=== PATIENT | male | born 1940 | race Caucasian/White ===

== ENCOUNTER 2020-08-03 06:00 | Day surgery (SDC) | payer MEDICARE ==
[2020-08-02 08:57] VITALS: BMI 30.9
[2020-08-03] MEDS ORDERED: Levofloxacin 500 mg/D5W 100 ml Premix Bag ONE (06:46)
[2020-08-03] MEDS ORDERED: Iothalamate Meglumine 60% 50 ML VIAL FS ONE (07:07)
[2020-08-03] MEDS ORDERED: Fentanyl 100 MCG/2 ML VIAL ONE (07:11)
[2020-08-03] MEDS ORDERED: SUGAMMADEX SODIUM 200 MG/2 ML VIAL ONE ×2 (07:59→08:27)
[2020-08-03] MEDS ORDERED: PHENYLEPHRINE-NS 100 MCG/ML 10 ML SYRINGE ONE (09:03)
[2020-08-03] MEDS ORDERED: Dexamethasone 20 MG/5 ML VIAL ONE (09:03)
[2020-08-03] MEDS ORDERED: Lidocaine 1% PF 5 ML VIAL ONE (09:03)
[2020-08-03] MEDS ORDERED: Glycopyrrolate 0.2 MG/ML 5 ML SYRINGE ONE (09:03)
[2020-08-03] MEDS ORDERED: Ondansetron PF 4 MG/2 ML Vial ONE (09:03)
[2020-08-03] MEDS ORDERED: PROPOFOL 200 MG/20 ML VIAL ONE (09:03)
[2020-08-03] MEDS ORDERED: Rocuronium Bromide 10 MG/ML (10ML VIAL) ONE (09:03)
[2020-08-03] MEDS ORDERED: Oxybutynin 5 MG TAB ONE (09:48)
[2020-08-03] MEDS ORDERED: Phenazopyridine HCl 97.5 MG TABLET ONE (09:48)
[2020-08-03] MEDS ORDERED: Ketorolac Tromethamine 30 MG/ML VIAL ONE (09:48)
--- NOTE | 2020-08-04 10:22 | EKG ---
Test Reason : PREOP Blood Pressure : / mmHG Vent. Rate : 070 BPM Atrial Rate : 070 BPM P-R Int : 200 ms QRS Dur : 102 ms QT Int : 420 ms P-R-T Axes : 061 -25 049 degrees QTc Int : 453 ms Normal sinus rhythm Normal ECG No previous ECGs available Confirmed by FRANDY SAVAGE M.D. ([id number]) on 08/04/2020 10:21:37 AM Referred By: DALILA Confirmed By:FRANDY SAVAGE M.D.
--- NOTE | 2020-08-04 11:40 | OP ---
DATE OF PROCEDURE: 08/03/2020 PREOPERATIVE DIAGNOSIS: Large right bladder tumor. POSTOPERATIVE DIAGNOSIS: Large right bladder tumor. PROCEDURES PERFORMED: Transurethral resection of large bladder tumor, retrograde pyelograms, instillation of mitomycin-C. ANESTHESIA: General. COMPLICATIONS: None. BLOOD LOSS: Minimal. SPECIMENS: Right bladder tumor, right wall biopsy, deep muscle biopsy. DESCRIPTION OF OPERATION: After informed consent, the patient was taken to the operating room, transferred to the table under his own power. Anesthesia was established. A time-out was performed showing the correct patient, site, and procedure. Preoperative antibiotics were administered. He was prepped and draped in the lithotomy position. The rigid resectoscope was advanced through the urethra noting normal course and caliber of the urethra into the prostate noting coapting lateral lobes, right greater than left with no significant bladder neck obstruction. The bladder was then entered and systematically examined noting a few small diverticula along the posterior wall. He also has a large tumor emanating from the right wall. There is some increased vascularity extending from the tumor slightly toward the bladder neck on the right wall. The trigone was uninvolved and both ureters were normal in appearance. I inserted the laser bridge and used a Pollack catheter to perform right and left retrograde pyelograms, which showed good filling of both ureters and renal pelves with no filling defects or evidence of obstruction. I then switched to the resection loop, and removed the bladder tumor from the right wall, which was passed off as specimen. I then resected the base ensuring adequate muscle for determination of muscle invasion. Finally I took a biopsy of the area of increased vascularity toward the bladder neck. Meticulous hemostasis was achieved. The bladder was drained and re-examined noting no active bleeding. The scope was withdrawn, and an 18-[place] Cordero catheter placed with 10 mL instilled in the balloon. Mitomycin 40 mg in 20 mL was instilled through the catheter into the bladder and the catheter plugged. The patient was then awoken from anesthesia, transferred back to his hospital bed, and taken to PACU in stable condition, where he will discharge home upon recovery. Job ID: [id number]
== END 2020-08-03 12:10 | disposition home or self-care (01) ==
LOC: SDC 06:00
PROVIDERS: ATTEND Urology
PROC: 0T5B8ZZ Destruction of Bladder, Via Natural or Artificial Opening Endoscopic (ICD-10-PCS; principal; 2020-08-03)
DX: C67.2 Malignant neoplasm of lateral wall of bladder (principal); N30.20 Other chronic cystitis without hematuria; N32.3 Diverticulum of bladder; I10 Essential (primary) hypertension; N52.9 Male erectile dysfunction, unspecified; K21.9 Gastro-esophageal reflux disease without esophagitis; E78.5 Hyperlipidemia, unspecified; Z87.891 Personal history of nicotine dependence; Z79.899 Other long term (current) drug therapy
CPT/HCPCS: 52240; 76000; 93005; J9280; 88305; 88307; 93010; J1100; J1885; J1956; J2405; J2704; J3010

== ENCOUNTER 2020-12-22 11:03 | Outpatient (CLI) | payer MEDICARE ==
--- NOTE | 2020-12-22 11:20 | RAD ---
Right knee 4 views HISTORY: Right knee pain and swelling. FINDINGS: Mild joint space narrowing medial compartment. Mild tricompartmental osteophytosis. No acute fracture or dislocation. Small amount of fluid distends the suprapatellar bursa on the later al view. Calcification within the arterial structures. 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 Atherosclerosis.
== END 2020-12-22 11:04 | disposition home or self-care (01) ==
LOC: SCSRAD 11:03
PROVIDERS: ATTEND Family Medicine
DX: M25.561 Pain in right knee (principal); M17.12 Unilateral primary osteoarthritis, left knee; M25.461 Effusion, right knee

== ENCOUNTER 2024-10-30 13:57 | Inpatient (IN) | payer MEDICARE ==
[~2024-10-30 13:57] MED LIST: Iopamidol-370 76% 500 ML MDV (1 ML CHARGE) ONE
[2024-10-30 15:30] LABS: #Basophils 0.03 10x3/uL (0.0-0.2); %Basophils 0.4 % (0.0-1.0); %Eosinophils 0.4 % (0.0-10.0); %Monocytes 11.6 % (0.0-10.0); %Neutrophils 70.3 % (42.0-75.0); Hematocrit 38.5 % (42.0-52.0); Hemoglobin 13.7 g/dL (14.0-18.0); Mean Corpuscular HGB CONC 35.6 g/dL (32.0-36.0); Mean Corpuscular Hemoglobin 33.7 pg (27.0-31.0); Mean Corpuscular Volume 94.6 fL (78.0-98.0); Mean Platelet Volume 9.8 fL (7.4-10.4); Platelet Count 205 10x3/uL (130-400); RBC Distribution Width 12.4 % (11.5-14.5); Red Blood Cell (RBC) Count 4.07 mill/uL (4.70-6.10)
[2024-10-30 15:51] LABS: Anion Gap 16 mmol/L (10-20); BUN (Urea Nitrogen) 13 mg/dL (8.4-25.7); Calc. Creatinine Clearance 0 mL/min (70-130); Calcium 9.7 mg/dL (7.8-10.44); Carbon Dioxide 23 mmol/L (23-31); Chloride 94 mmol/L (98-107); Estimated GFR 92; Glucose 115 mg/dL (83-110); Potassium 3.5 mmol/L (3.5-5.1); Sodium 129 mmol/L (136-145)
[2024-10-30 16:53] LABS: Bacteria/HPF None Seen HPF (None Seen); Bilirubin Negative (Negative); Blood, Urine Negative (Negative); CAUTI Indications for Culture Alt mental st,lethar; Clarity Clear (Clear); Glucose, Urine (Dipstick) Normal (Negative); Ketone, Urine Trace mg/dL (Negative); Leukocyte 500 Leu/uL (Negative); Nitrite Negative (Negative); Protein, Urine (Dipstick) Negative (Neg-Trace); RBC/HPF 0-3 HPF (0-3); Specific Gravity, Urine 1.028 (1.002-1.036); Squamous Epithelial None Seen HPF (0-3); Urobilinogen Normal mg/dL (Less than 2); WBC/HPF 21-50 HPF (0-3); pH, Urine 6.5 (5.0-9.0)
[2024-10-30 17:00] LABS: Urine Culture Reflex Yes Yes
[2024-10-30] MEDS ORDERED: Acetaminophen 325 MG TAB PO PRN (17:20)
[2024-10-30] MEDS ORDERED: Aspirin Chewable 81 MG TAB ONE (18:23)
[2024-10-30 21:06] VITALS: BMI 29.7
[2024-10-31] MEDS ORDERED: Famotidine 20 MG TAB ONE ×2 (00:14→08:45)
[2024-10-31] MEDS ORDERED: Atorvastatin Calcium 40 MG TAB ONE (00:14)
[2024-10-31] MEDS: Famotidine 20 MG TAB PO SCH (00:19)
[2024-10-31] MEDS: Atorvastatin Calcium 40 MG TAB PO SCH (00:19)
[2024-10-31 06:03] LABS: #Basophils 0.04 10x3/uL (0.0-0.2); %Basophils 0.6 % (0.0-1.0); %Eosinophils 0.6 % (0.0-10.0); %Lymphocytes 14.6 % (21.0-51.0); %Monocytes 14.9 % (0.0-10.0); Hematocrit 37.9 % (42.0-52.0); Hemoglobin 13.5 g/dL (14.0-18.0); Mean Corpuscular HGB CONC 35.6 g/dL (32.0-36.0); Mean Corpuscular Hemoglobin 33.7 pg (27.0-31.0); Mean Corpuscular Volume 94.5 fL (78.0-98.0); Mean Platelet Volume 10.4 fL (7.4-10.4); Platelet Count 185 10x3/uL (130-400); RBC Distribution Width 12.5 % (11.5-14.5); Red Blood Cell (RBC) Count 4.01 mill/uL (4.70-6.10)
[2024-10-31 06:21] LABS: Hemoglobin A1c 5.2 % (4.0-6.0)
[2024-10-31 06:28] LABS: Anion Gap 14 mmol/L (10-20); BUN (Urea Nitrogen) 10 mg/dL (8.4-25.7); Calc. Creatinine Clearance 117 mL/min (70-130); Calcium 9.4 mg/dL (7.8-10.44); Carbon Dioxide 22 mmol/L (23-31); Cardiac Risk 2.9 (Less than 4.5); Chloride 99 mmol/L (98-107); Cholesterol 153 mg/dl (< 200 Desired); Estimated GFR 94; Glucose 126 mg/dL (83-110); HDL Cholesterol 52 mg/dL (>60 Neg Risk); LDL Cholesterol, Calculated 86 mg/dL; Potassium 3.5 mmol/L (3.5-5.1); Sodium 131 mmol/L (136-145); Triglycerides 77 mg/dL (Less than 150)
[2024-10-31] MEDS ORDERED: Aspirin 81 mg Enteric Coated Tablet ONE (08:44)
[2024-10-31] MEDS ORDERED: Enoxaparin 40 MG (0.4 mL) SYRINGE ONE (08:45)
[2024-10-31] MEDS: Enoxaparin 40 MG (0.4 mL) SYRINGE SC SCH (08:59)
[2024-10-31] MEDS: Aspirin 81 mg Enteric Coated Tablet PO SCH (08:59)
[2024-10-31] MEDS ORDERED: hydrALAZINE 20 MG/ML VIAL ONE (15:56)
[2024-10-31] MEDS: hydrALAZINE 20 MG/ML VIAL SLOW IVP PRN (16:07)
[2024-10-31] MEDS ORDERED: Lysine 500 MG TAB PO PRN (17:33)
[2024-10-31] MEDS ORDERED: Netarsudil Mesylate [Rhopressa] 2.5 ML Drops EA EYE SCH (21:00)
[2024-10-31] MEDS: DorzolamidE/Timolol 2%/0.5% Ophth Soln 10 ml Bottle EA EYE SCH (23:25)
[2024-11-01 04:28] LABS: #Basophils 0.04 10x3/uL (0.0-0.2); %Basophils 0.5 % (0.0-1.0); %Eosinophils 0.8 % (0.0-10.0); %Lymphocytes 17.5 % (21.0-51.0); %Monocytes 14.2 % (0.0-10.0); %Neutrophils 66.7 % (42.0-75.0); Hematocrit 39.3 % (42.0-52.0); Hemoglobin 14.2 g/dL (14.0-18.0); Mean Corpuscular HGB CONC 36.1 g/dL (32.0-36.0); Mean Corpuscular Hemoglobin 34.5 pg (27.0-31.0); Mean Corpuscular Volume 95.6 fL (78.0-98.0); Mean Platelet Volume 10.7 fL (7.4-10.4); Platelet Count 223 10x3/uL (130-400); RBC Distribution Width 12.7 % (11.5-14.5); Red Blood Cell (RBC) Count 4.11 mill/uL (4.70-6.10)
[2024-11-01 05:00] LABS: Anion Gap 15 mmol/L (10-20); BUN (Urea Nitrogen) 9 mg/dL (8.4-25.7); Calc. Creatinine Clearance 111 mL/min (70-130); Calcium 9.3 mg/dL (7.8-10.44); Carbon Dioxide 22 mmol/L (23-31); Chloride 98 mmol/L (98-107); Estimated GFR 93; Glucose 119 mg/dL (83-110); Potassium 3.6 mmol/L (3.5-5.1); Sodium 131 mmol/L (136-145)
[2024-11-01] MEDS: Tamsulosin HCl 0.4 MG CAP PO SCH (08:57)
[2024-11-01] MEDS ORDERED: Non-Formulary Item 1 EACH (Latanoprostene Bunod [Vyzulta] 5 ML Drops) OP SCH (09:00)
[2024-11-01] MEDS ORDERED: Latanoprostene Bunod [Vyzulta] 5 ML Drops EA EYE SCH (09:00)
[2024-11-01] MEDS: traMADol HCl 50 MG TAB PO PRN (20:09)
[2024-11-02 08:07] VITALS: TEMP 98.1
[2024-11-02] MEDS: Valsartan 80 MG TAB PO SCH (08:33)
[2024-11-02] MEDS: Hydrochlorothiazide 25 MG TAB PO SCH (08:34)
[2024-11-02 11:30] VITALS: BP 194/95
[2024-11-02] MEDS ORDERED: Senokot S 8.6-50 MG TAB PO SCH (21:00)
== END 2024-11-02 14:40 | DRG 65 ==
LOC: ERS 13:57 → ERHOLD 16:34 → 2SE 10-31 16:46 → OBSVTOIN 10-31 17:33
PROVIDERS: ADMIT Internal Medicine; ATTEND Hospitalist
DX: I63.9 Cerebral infarction, unspecified (principal); E87.1 Hypo-osmolality and hyponatremia; G81.94 Hemiplegia, unspecified affecting left nondominant side; E78.5 Hyperlipidemia, unspecified; Z79.82 Long term (current) use of aspirin; Z79.899 Other long term (current) drug therapy; I10 Essential (primary) hypertension; N40.0 Benign prostatic hyperplasia without lower urinary tract symptoms; Z98.890 Other specified postprocedural states; Z87.891 Personal history of nicotine dependence
CPT/HCPCS: 0042T; 36415; 36416; 70450; 70496; 70498; 70551; 74230; 80048; 80061; 81001; 83036; 85025; 87086; 93306; 96372; 96374; G0378; J0360; J1650; Q9967